=== PATIENT | female | born 1935 | race Caucasian/White ===

== ENCOUNTER 2017-11-15 07:17 | Inpatient (IN) ==
[2017-11-15 08:26] LABS: Basophils # 0.1 10*3/uL (0.0-0.2); Basophils % 0.7 % (0.0-0.8); Eosinophils # 0.5 10*3/uL (0.0-0.87); Eosinophils % 4.9 % (0.00-10.9); Hematocrit 34.4 VOL% (35.7-47.0); Hemoglobin 10.8 GM/DL (12.0-16.0); Immature Granulocytes % 0.4 %; Immature Granulocytes Absolute 0.04 #; Lymphocytes % 10.4 % (21.3-54.2); Mean Corpuscular HGB Conc 31.4 GM/DL (32-36); Mean Corpuscular Hemoglobin 30 PG (27-34); Mean Platelet Volume 10.2 FL (9.6-12.0); Monocytes # 0.5 10*3/uL (0.11-0.8); Monocytes % 5.7 % (1.7-12.7); Neutrophils # 7.1 10*3/uL (1.4-7.4); Neutrophils % 77.9 % (38.7-73.9); Platelet Count 224 T/CUMM (130-400); Red Blood Count 3.66 MC/CUMM (3.8-5.5); Red Cell Distribution Width 14.7 % (9.3-17.3); White Blood Count 9.2 T/CUMM (4-12)
[2017-11-15 08:50] LABS: Albumin 4.1 G/DL (3.4-5.0); Bilirubin,Total 0.7 MG/DL (0.2-1.0); Osmolality,Calculated 283.4 MOS/KG (273-304); Total Protein 7.9 G/DL (6.4-8.3)
[2017-11-15 09:06] LABS: Apearance,Urine CLEAR (Clear); Bacteria,Urine Few /HPF (Few); Bilirubin,Urine Negative (Negative); Blood, Urine Negative (Negative); Glucose,Urine (UA) Negative (Negative); Ketones,Urine Negative (Negative); Mucus,Urine Occasional /LPF (Occasional); Nitrite,Urine Negative (Negative); Protein,Urine 30 MG/DL; RBC,Urine <1 /HPF (0-4); Squamous Epithelial Cell,Urine Occasional /HPF (0-10); Urine Color Yellow (Yellow); Urine Specific Gravity 1.009 (1.001-1.035); Urine Urobilinogen < 2.0 EU/DL (0.2-1.0); WBC,Urine 10 /HPF (0-6)
[2017-11-15] MEDS ORDERED: FUROSEMIDE 80 MG TABLET PO STA (09:29)
[2017-11-15] MEDS ORDERED: LEVOFLOXACIN 500 MG TABLET PO STA (09:29)
[2017-11-15] MEDS ORDERED: GLUCAGON 1 MG VIAL IM PRN (11:32)
[2017-11-15] MEDS ORDERED: ACETAMINOPHEN 325 MG TABLET PO PRN ×2 (11:32→11:37)
[2017-11-15] MEDS ORDERED: DEXTROSE 50% 25 GM/50 ML VIAL IV PRN (11:32)
[2017-11-15] MEDS ORDERED: guaiFENesin/DM ER 600-30 MG TABLET PO PRN (11:32)
[2017-11-15] MEDS ORDERED: MORPHINE 4 MG/1 ML VIAL IV PRN (11:32)
[2017-11-15] MEDS ORDERED: diphenhydrAMINE CAP 25 MG CAPSULE PO PRN (11:32)
[2017-11-15] MEDS ORDERED: ONDANSETRON 4 MG/2 ML VIAL IV PRN (11:32)
[2017-11-15] MEDS ORDERED: DOCUSATE SODIUM 100 MG CAPSULE PO PRN (11:32)
[2017-11-15] MEDS ORDERED: traMADol 50 MG TABLET PO PRN (11:37)
[2017-11-15] MEDS ORDERED: PROMETHAZINE 25 MG TABLET PO PRN (12:00)
[2017-11-15] MEDS: ALBUTEROL/IPRATROPIUM 3 ML NEB RESP TX SCH ×2 (13:24→18:48)
[2017-11-15] MEDS: POTASSIUM CHLORIDE 20 MEQ TABLET PO SCH (14:29)
[2017-11-15] MEDS: FERROUS SULFATE 325 MG TABLET PO SCH ×2 (14:30→20:58)
[2017-11-15] MEDS: ASPIRIN EC 81 MG TABLET PO SCH (14:30)
[2017-11-15] MEDS: SERTRALINE 100 MG TABLET PO SCH (14:30)
[2017-11-15] MEDS: amLODIPine 10 MG TABLET PO SCH (14:30)
[2017-11-15] MEDS: PANTOPRAZOLE 40 MG TABLET PO SCH (14:37)
[2017-11-15] MEDS: FOSINOPRIL 10 MG TABLET PO SCH (16:56)
[2017-11-15] MEDS: GABAPENTIN 600 MG TABLET PO SCH ×2 (16:56→20:58)
[2017-11-15] MEDS: lamoTRIgine 100 MG TABLET PO SCH (16:56)
[2017-11-15] MEDS: FUROSEMIDE 40 MG/4 ML VIAL IV SCH ×2 (16:56→21:38)
[2017-11-15] MEDS: INSULIN LISPRO 100 UNIT/ML SUBCUT SCH (17:22)
[2017-11-15] MEDS: HydrOXYzine PAMOATE 25 MG CAPSULE PO PRN ×2 (17:23→21:38)
[2017-11-15] MEDS: ENOXAPARIN 30 MG/0.3 ML SYRINGE SUBCUT SCH (20:58)
[2017-11-15] MEDS: INSULIN GLARGINE 100 UNIT/ML SUBCUT SCH (21:03)
[2017-11-15] MEDS: SIMVASTATIN 10 MG TABLET PO SCH (21:05)
[2017-11-16] MEDS: ALBUTEROL/IPRATROPIUM 3 ML NEB RESP TX SCH ×4 (00:59→18:52)
[2017-11-16 03:54] LABS: Basophils # 0.1 10*3/uL (0.0-0.2); Basophils % 0.7 % (0.0-0.8); Eosinophils # 0.7 10*3/uL (0.0-0.87); Eosinophils % 8.7 % (0.00-10.9); Hemoglobin 9.5 GM/DL (12.0-16.0); Immature Granulocytes % 0.7 %; Immature Granulocytes Absolute 0.06 #; Lymphocytes # 1.4 10*3/uL (1.4-4.0); Lymphocytes % 16.5 % (21.3-54.2); Mean Corpuscular HGB Conc 31.7 GM/DL (32-36); Mean Corpuscular Hemoglobin 29 PG (27-34); Mean Platelet Volume 10.3 FL (9.6-12.0); Monocytes # 0.7 10*3/uL (0.11-0.8); Monocytes % 8.3 % (1.7-12.7); Neutrophils # 5.4 10*3/uL (1.4-7.4); Neutrophils % 65.1 % (38.7-73.9); Platelet Count 211 T/CUMM (130-400); Red Blood Count 3.26 MC/CUMM (3.8-5.5); Red Cell Distribution Width 14.7 % (9.3-17.3); White Blood Count 8.3 T/CUMM (4-12)
[2017-11-16 04:19] LABS: Calcium 8.7 MG/DL (8.5-10.1)
[2017-11-16 04:20] LABS: Osmolality,Calculated 279.5 MOS/KG (273-304); Potassium 3.7 MMOL/L (3.5-5.1); Risk Ratio 2.14; Thyroid Stimulating Hormone 3.44 uIU/ml (0.358-3.74); VLDL CHOLESTEROL 26.8 MG/DL
[2017-11-16] MEDS: FUROSEMIDE 40 MG/4 ML VIAL IV SCH ×3 (05:06→18:00)
[2017-11-16] MEDS: LEVOTHYROXINE 88 MCG TABLET PO SCH (06:00)
[2017-11-16] MEDS: INSULIN LISPRO 100 UNIT/ML SUBCUT SCH ×2 (08:32→17:28)
[2017-11-16] MEDS: lamoTRIgine 100 MG TABLET PO SCH (09:31)
[2017-11-16] MEDS: SERTRALINE 100 MG TABLET PO SCH (09:31)
[2017-11-16] MEDS: FOSINOPRIL 10 MG TABLET PO SCH (09:31)
[2017-11-16] MEDS: ASPIRIN EC 81 MG TABLET PO SCH (09:31)
[2017-11-16] MEDS: GABAPENTIN 600 MG TABLET PO SCH (09:31)
[2017-11-16] MEDS: FERROUS SULFATE 325 MG TABLET PO SCH ×2 (09:31→20:58)
[2017-11-16] MEDS: amLODIPine 10 MG TABLET PO SCH (09:31)
[2017-11-16] MEDS: PANTOPRAZOLE 40 MG TABLET PO SCH (09:31)
[2017-11-16] MEDS: POTASSIUM CHLORIDE 20 MEQ TABLET PO SCH (09:32)
[2017-11-16] MEDS: HydrOXYzine PAMOATE 25 MG CAPSULE PO PRN (10:13)
[2017-11-16] MEDS ORDERED: LEVOFLOXACIN INJ 250 MG in PREMIX 1 EACH IV SCH (13:00)
[2017-11-16] MEDS: ERTAPENEM 1,000 MG in SODIUM CHLORIDE 0.9% 100 ML IV SCH (13:47)
[2017-11-16] MEDS: GABAPENTIN 300 MG CAPSULE PO SCH ×2 (14:54→20:58)
[2017-11-16] MEDS: CHOLECALCIFEROL 1,000 UNIT TABLET PO SCH (14:54)
[2017-11-16] MEDS: SIMVASTATIN 10 MG TABLET PO SCH (20:58)
[2017-11-16] MEDS: INSULIN GLARGINE 100 UNIT/ML SUBCUT SCH ×2 (20:59→21:06)
[2017-11-16] MEDS: ENOXAPARIN 30 MG/0.3 ML SYRINGE SUBCUT SCH (20:59)
[2017-11-17] MEDS: ALBUTEROL/IPRATROPIUM 3 ML NEB RESP TX SCH ×4 (00:26→20:04)
[2017-11-17 03:51] LABS: Bilirubin,Total 0.6 MG/DL (0.2-1.0); Calcium 8.7 MG/DL (8.5-10.1); Osmolality,Calculated 282.5 MOS/KG (273-304); Total Protein 6.6 G/DL (6.4-8.3)
[2017-11-17] MEDS: LEVOTHYROXINE 88 MCG TABLET PO SCH (05:59)
[2017-11-17] MEDS: INSULIN LISPRO 100 UNIT/ML SUBCUT SCH ×2 (08:15→16:40)
[2017-11-17] MEDS: ASPIRIN EC 81 MG TABLET PO SCH (08:31)
[2017-11-17] MEDS: FOSINOPRIL 10 MG TABLET PO SCH (08:31)
[2017-11-17] MEDS: amLODIPine 10 MG TABLET PO SCH (08:31)
[2017-11-17] MEDS: PANTOPRAZOLE 40 MG TABLET PO SCH (08:31)
[2017-11-17] MEDS: FERROUS SULFATE 325 MG TABLET PO SCH ×2 (08:31→21:59)
[2017-11-17] MEDS: HydrOXYzine PAMOATE 25 MG CAPSULE PO PRN (08:31)
[2017-11-17] MEDS: lamoTRIgine 100 MG TABLET PO SCH (08:31)
[2017-11-17] MEDS: SERTRALINE 100 MG TABLET PO SCH (08:31)
[2017-11-17] MEDS: CHOLECALCIFEROL 1,000 UNIT TABLET PO SCH (08:31)
[2017-11-17] MEDS: POTASSIUM CHLORIDE 20 MEQ TABLET PO SCH (08:31)
[2017-11-17] MEDS: GABAPENTIN 300 MG CAPSULE PO SCH ×3 (08:32→21:59)
[2017-11-17] MEDS: FUROSEMIDE 40 MG/4 ML VIAL IV SCH ×2 (08:39→15:49)
[2017-11-17] MEDS ORDERED: LORazepam 2 MG/1 ML VIAL IV ONE (09:26)
[2017-11-17] MEDS ORDERED: LORazepam 2 MG/1 ML VIAL ONE (09:30)
[2017-11-17] MEDS: ERTAPENEM 1,000 MG in SODIUM CHLORIDE 0.9% 100 ML IV SCH (12:57)
[2017-11-17] MEDS ORDERED: FUROSEMIDE 40 MG/4 ML VIAL IM SCH (16:00)
[2017-11-17] MEDS: CIPROFLOXACIN 500 MG TABLET PO SCH (21:59)
[2017-11-17] MEDS: INSULIN GLARGINE 100 UNIT/ML SUBCUT SCH ×2 (21:59→22:01)
[2017-11-17] MEDS: ENOXAPARIN 30 MG/0.3 ML SYRINGE SUBCUT SCH (21:59)
[2017-11-17] MEDS: SIMVASTATIN 10 MG TABLET PO SCH (21:59)
[2017-11-18] MEDS: ALBUTEROL/IPRATROPIUM 3 ML NEB RESP TX SCH ×3 (01:08→12:44)
[2017-11-18 04:56] LABS: Calcium 8.3 MG/DL (8.5-10.1); Osmolality,Calculated 284.5 MOS/KG (273-304); Potassium 3.9 MMOL/L (3.5-5.1)
[2017-11-18] MEDS: LEVOTHYROXINE 88 MCG TABLET PO SCH (06:21)
[2017-11-18] MEDS ORDERED: TRIAMCINOLONE ACETONIDE 40 MG/1 ML VIAL INTRAARTIC ONE (08:56)
[2017-11-18] MEDS ORDERED: LIDOCAINE 1% 20 ML VIAL IM ONE (08:56)
[2017-11-18] MEDS: CHOLECALCIFEROL 1,000 UNIT TABLET PO SCH (08:59)
[2017-11-18] MEDS: SERTRALINE 100 MG TABLET PO SCH (08:59)
[2017-11-18] MEDS: ASPIRIN EC 81 MG TABLET PO SCH (09:00)
[2017-11-18] MEDS: amLODIPine 10 MG TABLET PO SCH (09:00)
[2017-11-18] MEDS: FERROUS SULFATE 325 MG TABLET PO SCH (09:00)
[2017-11-18] MEDS: PANTOPRAZOLE 40 MG TABLET PO SCH (09:00)
[2017-11-18] MEDS: POTASSIUM CHLORIDE 20 MEQ TABLET PO SCH (09:00)
[2017-11-18] MEDS: CIPROFLOXACIN 500 MG TABLET PO SCH (09:00)
[2017-11-18] MEDS: GABAPENTIN 300 MG CAPSULE PO SCH (09:01)
[2017-11-18] MEDS: lamoTRIgine 100 MG TABLET PO SCH (09:07)
[2017-11-18] MEDS: FUROSEMIDE 40 MG/4 ML VIAL IV SCH (09:07)
[2017-11-18] MEDS ORDERED: FLUMAZENIL 1 MG/10 ML VIAL IV ONE (10:51)
[2017-11-18 11:55] VITALS: BP 122/65
[2017-11-18] MEDS ORDERED: FLUMAZENIL 0.5 MG/5 ML VIAL IV ONE (12:30)
[2017-11-18] MEDS: INSULIN LISPRO 100 UNIT/ML SUBCUT SCH (13:40)
== END 2017-11-18 16:15 | disposition swing bed (61) | DRG 291 ==
LOC: EDUNIT# → EDBD → N.ED 07:17 → N.EDINP 11:32 → N.2W 12:42 → N.TELES 15:07
PROVIDERS: ADMIT Hospitalist; ATTEND Hospitalist

== ENCOUNTER 2018-04-04 10:02 | Inpatient (IN) ==
[2018-04-04 10:50] LABS: Basophils % 0.3 % (0.0-0.8); Eosinophils # 0.1 10*3/uL (0.0-0.87); Eosinophils % 0.6 % (0.00-10.9); Hematocrit 37.5 VOL% (35.7-47.0); Hemoglobin 11.8 GM/DL (12.0-16.0); Immature Granulocytes % 0.6 %; Immature Granulocytes Absolute 0.09 #; Lymphocytes # 0.7 10*3/uL (1.4-4.0); Lymphocytes % 4.7 % (21.3-54.2); Mean Corpuscular HGB Conc 31.5 GM/DL (32-36); Mean Corpuscular Hemoglobin 28 PG (27-34); Mean Corpuscular Volume 89.9 FL (87-102); Mean Platelet Volume 10.7 FL (9.6-12.0); Monocytes # 0.8 10*3/uL (0.11-0.8); Monocytes % 5.2 % (1.7-12.7); Neutrophils # 13.3 10*3/uL (1.4-7.4); Neutrophils % 88.6 % (38.7-73.9); Platelet Count 300 T/CUMM (130-400); Red Blood Count 4.17 MC/CUMM (3.8-5.5); Red Cell Distribution Width 13.4 % (9.3-17.3); White Blood Count 15.1 T/CUMM (4-12)
[2018-04-04 11:18] LABS: Albumin 2.8 G/DL (3.4-5.0); Bilirubin,Total 0.5 MG/DL (0.2-1.0); Calcium 8.9 MG/DL (8.5-10.1); Osmolality,Calculated 276.4 MOS/KG (273-304); Total Protein 7.5 G/DL (6.4-8.3)
[2018-04-04 11:22] LABS: Band Neutrophils 3 % (0-10); Lymphocytes 5 % (20-55); Platelet Estimate Normal; Segmented Neutrophils 89 % (50-85); Total Cells Counted 100
[2018-04-04 11:49] LABS: Apearance,Urine Slightly Hazy (Clear); Bacteria,Urine Many /HPF (Few); Bilirubin,Urine Negative (Negative); Blood, Urine Negative (Negative); Glucose,Urine (UA) Negative (Negative); Hyaline Casts,Urine 1 /LPF (0-3); Ketones,Urine Negative (Negative); Mucus,Urine Occasional /LPF (Occasional); Nitrite,Urine Negative (Negative); Protein,Urine Negative; RBC,Urine 1 /HPF (0-4); Squamous Epithelial Cell,Urine Occasional /HPF (0-10); Urine Color Yellow (Yellow); Urine Specific Gravity 1.011 (1.001-1.035); Urine Urobilinogen < 2.0 EU/DL (0.2-1.0); WBC,Urine 18 /HPF (0-6)
[2018-04-04] MEDS ORDERED: cefTRIAXone 1,000 MG in SODIUM CHLORIDE 0.9% 100 ML IV STA (12:17)
[2018-04-04] MEDS ORDERED: POTASSIUM CHLORIDE 20 MEQ TABLET PO STA (12:35)
[2018-04-04] MEDS ORDERED: SODIUM CHLORIDE 0.9% 100 ML IV ONE (12:42)
[2018-04-04] MEDS ORDERED: cefTRIAXone 1,000 MG VIAL ONE (12:42)
[2018-04-04] MEDS ORDERED: POTASSIUM CHLORIDE 20 MEQ TABLET PO ONE (12:43)
[2018-04-04] MEDS ORDERED: DEXTROSE 50% 25 GM/50 ML VIAL IV PRN (14:07)
[2018-04-04] MEDS ORDERED: ACETAMINOPHEN 325 MG TABLET PO PRN ×2 (14:07→16:01)
[2018-04-04] MEDS ORDERED: guaiFENesin/DM ER 600-30 MG TABLET PO PRN (14:07)
[2018-04-04] MEDS ORDERED: GLUCAGON 1 MG VIAL IM PRN (14:07)
[2018-04-04] MEDS ORDERED: ALBUTEROL 2.5 MG/3 ML NEB RESP TX PRN (16:01)
[2018-04-04] MEDS ORDERED: HydrOXYzine PAMOATE 25 MG CAPSULE PO PRN (16:01)
[2018-04-04] MEDS ORDERED: POTASSIUM CHLORIDE 20 MEQ TABLET PO PRN (16:01)
[2018-04-04] MEDS ORDERED: INFLUENZA VIRUS VACCINE 0.5 ML SYRINGE IM ONE (17:33)
[2018-04-04] MEDS: predniSONE 20 MG TABLET PO SCH (18:23)
[2018-04-04] MEDS: INSULIN REGULAR 100 UNIT/ML SUBCUT SCH ×2 (18:24→21:41)
[2018-04-04] MEDS: glipiZIDE 10 MG TABLET PO SCH (18:24)
[2018-04-04] MEDS: ALBUTEROL/IPRATROPIUM 3 ML NEB RESP TX SCH (19:24)
[2018-04-04] MEDS: DOCUSATE SODIUM 100 MG CAPSULE PO SCH (21:37)
[2018-04-04] MEDS: NYSTATIN/TRIAMCINOLONE CREAM 15 GM TUBE TOP SCH (21:37)
[2018-04-04] MEDS: SIMVASTATIN 10 MG TABLET PO SCH (21:37)
[2018-04-04] MEDS: FERROUS SULFATE 325 MG TABLET PO SCH (21:37)
[2018-04-04] MEDS: INSULIN GLARGINE 100 UNIT/ML SUBCUT SCH (21:37)
[2018-04-05] MEDS: ALBUTEROL/IPRATROPIUM 3 ML NEB RESP TX SCH ×2 (01:38→07:38)
[2018-04-05 04:48] LABS: Basophils % 0.2 % (0.0-0.8); Hematocrit 36.7 VOL% (35.7-47.0); Hemoglobin 11.5 GM/DL (12.0-16.0); Immature Granulocytes % 0.7 %; Immature Granulocytes Absolute 0.07 #; Lymphocytes # 0.9 10*3/uL (1.4-4.0); Lymphocytes % 9.2 % (21.3-54.2); Mean Corpuscular HGB Conc 31.3 GM/DL (32-36); Mean Corpuscular Hemoglobin 28 PG (27-34); Mean Platelet Volume 10.7 FL (9.6-12.0); Monocytes # 0.3 10*3/uL (0.11-0.8); Monocytes % 3.4 % (1.7-12.7); Neutrophils # 8.7 10*3/uL (1.4-7.4); Neutrophils % 86.5 % (38.7-73.9); Platelet Count 274 T/CUMM (130-400); Red Blood Count 4.08 MC/CUMM (3.8-5.5); Red Cell Distribution Width 13.4 % (9.3-17.3); White Blood Count 10.1 T/CUMM (4-12)
[2018-04-05 05:11] LABS: Calcium 8.6 MG/DL (8.5-10.1); Potassium 3.7 MMOL/L (3.5-5.1)
[2018-04-05] MEDS: LEVOTHYROXINE 88 MCG TABLET PO SCH (05:51)
[2018-04-05] MEDS: INSULIN REGULAR 100 UNIT/ML SUBCUT SCH ×4 (10:06→20:37)
[2018-04-05] MEDS: FERROUS SULFATE 325 MG TABLET PO SCH ×2 (10:07→20:37)
[2018-04-05] MEDS: DOCUSATE SODIUM 100 MG CAPSULE PO SCH ×2 (10:07→20:37)
[2018-04-05] MEDS: glipiZIDE 10 MG TABLET PO SCH ×2 (10:07→16:56)
[2018-04-05] MEDS: NYSTATIN/TRIAMCINOLONE CREAM 15 GM TUBE TOP SCH ×2 (10:07→20:38)
[2018-04-05] MEDS: sitaGLIPtin 100 MG TABLET PO SCH (10:08)
[2018-04-05] MEDS: FUROSEMIDE 80 MG TABLET PO SCH ×2 (10:08→16:55)
[2018-04-05] MEDS: METOPROLOL SUCCINATE XL 50 MG TABLET PO SCH (10:09)
[2018-04-05] MEDS: PANTOPRAZOLE 40 MG TABLET PO SCH (10:09)
[2018-04-05] MEDS: predniSONE 20 MG TABLET PO SCH (10:09)
[2018-04-05] MEDS: ASPIRIN EC 81 MG TABLET PO SCH (10:10)
[2018-04-05] MEDS: lamoTRIgine 100 MG TABLET PO SCH (10:10)
[2018-04-05] MEDS: SERTRALINE 100 MG TABLET PO SCH (10:11)
[2018-04-05] MEDS ORDERED: ALBUTEROL/IPRATROPIUM 3 ML NEB RESP TX PRN (10:55)
[2018-04-05] MEDS: cefTRIAXone 1,000 MG in SYRINGE 1 EACH IV SCH (14:22)
[2018-04-05] MEDS: SIMVASTATIN 10 MG TABLET PO SCH (20:37)
[2018-04-05] MEDS: INSULIN GLARGINE 100 UNIT/ML SUBCUT SCH (20:38)
[2018-04-06 04:41] LABS: Basophils % 0.2 % (0.0-0.8); Eosinophils # 0.1 10*3/uL (0.0-0.87); Eosinophils % 0.5 % (0.00-10.9); Hemoglobin 12.1 GM/DL (12.0-16.0); Immature Granulocytes % 0.8 %; Immature Granulocytes Absolute 0.13 #; Lymphocytes # 2.9 10*3/uL (1.4-4.0); Mean Corpuscular Hemoglobin 28 PG (27-34); Mean Corpuscular Volume 91.5 FL (87-102); Mean Platelet Volume 10.4 FL (9.6-12.0); Monocytes # 1.2 10*3/uL (0.11-0.8); Monocytes % 6.9 % (1.7-12.7); Neutrophils # 12.8 10*3/uL (1.4-7.4); Neutrophils % 74.6 % (38.7-73.9); Platelet Count 439 T/CUMM (130-400); Red Blood Count 4.26 MC/CUMM (3.8-5.5); Red Cell Distribution Width 13.6 % (9.3-17.3); White Blood Count 17.2 T/CUMM (4-12)
[2018-04-06 04:51] LABS: Calcium 9.2 MG/DL (8.5-10.1); Osmolality,Calculated 276.7 MOS/KG (273-304); Potassium 3.2 MMOL/L (3.5-5.1)
[2018-04-06] MEDS: LEVOTHYROXINE 88 MCG TABLET PO SCH (06:19)
[2018-04-06] MEDS: POTASSIUM CHLORIDE 20 MEQ TABLET PO PRN ×2 (06:19→21:22)
[2018-04-06] MEDS: INSULIN REGULAR 100 UNIT/ML SUBCUT SCH ×4 (08:41→21:23)
[2018-04-06] MEDS: NYSTATIN/TRIAMCINOLONE CREAM 15 GM TUBE TOP SCH ×2 (10:09→21:25)
[2018-04-06] MEDS: FERROUS SULFATE 325 MG TABLET PO SCH ×2 (10:10→21:22)
[2018-04-06] MEDS: lamoTRIgine 100 MG TABLET PO SCH (10:10)
[2018-04-06] MEDS: ASPIRIN EC 81 MG TABLET PO SCH (10:11)
[2018-04-06] MEDS: SERTRALINE 100 MG TABLET PO SCH (10:11)
[2018-04-06] MEDS: FUROSEMIDE 80 MG TABLET PO SCH ×2 (10:11→16:19)
[2018-04-06] MEDS: predniSONE 20 MG TABLET PO SCH (10:11)
[2018-04-06] MEDS: DOCUSATE SODIUM 100 MG CAPSULE PO SCH ×2 (10:11→21:22)
[2018-04-06] MEDS: METOPROLOL SUCCINATE XL 50 MG TABLET PO SCH (10:11)
[2018-04-06] MEDS: glipiZIDE 10 MG TABLET PO SCH ×2 (10:18→17:35)
[2018-04-06] MEDS: sitaGLIPtin 100 MG TABLET PO SCH (10:18)
[2018-04-06] MEDS: cefTRIAXone 1,000 MG in SYRINGE 1 EACH IV SCH (13:19)
[2018-04-06] MEDS: PANTOPRAZOLE 40 MG TABLET PO SCH (13:19)
[2018-04-06 20:44] LABS: Calcium 8.3 MG/DL (8.5-10.1); Osmolality,Calculated 287.5 MOS/KG (273-304); Potassium 3.9 MMOL/L (3.5-5.1)
[2018-04-06] MEDS: SIMVASTATIN 10 MG TABLET PO SCH (21:22)
[2018-04-06] MEDS: INSULIN GLARGINE 100 UNIT/ML SUBCUT SCH (21:22)
[2018-04-07] MEDS: INSULIN REGULAR 100 UNIT/ML SUBCUT SCH ×6 (02:24→21:24)
[2018-04-07 04:42] LABS: Basophils % 0.2 % (0.0-0.8); Eosinophils # 0.1 10*3/uL (0.0-0.87); Eosinophils % 0.4 % (0.00-10.9); Hemoglobin 11.3 GM/DL (12.0-16.0); Immature Granulocytes % 0.8 %; Immature Granulocytes Absolute 0.11 #; Lymphocytes # 1.4 10*3/uL (1.4-4.0); Lymphocytes % 10.5 % (21.3-54.2); Mean Corpuscular HGB Conc 30.5 GM/DL (32-36); Mean Corpuscular Hemoglobin 28 PG (27-34); Mean Corpuscular Volume 90.9 FL (87-102); Mean Platelet Volume 10.4 FL (9.6-12.0); Monocytes % 7.3 % (1.7-12.7); Neutrophils # 10.6 10*3/uL (1.4-7.4); Neutrophils % 80.8 % (38.7-73.9); Platelet Count 312 T/CUMM (130-400); Red Blood Count 4.07 MC/CUMM (3.8-5.5); Red Cell Distribution Width 13.4 % (9.3-17.3); White Blood Count 13.1 T/CUMM (4-12)
[2018-04-07] MEDS: LEVOTHYROXINE 88 MCG TABLET PO SCH (06:03)
[2018-04-07] MEDS: glipiZIDE 10 MG TABLET PO SCH ×2 (07:23→17:24)
[2018-04-07] MEDS: NYSTATIN/TRIAMCINOLONE CREAM 15 GM TUBE TOP SCH ×2 (07:30→22:40)
[2018-04-07] MEDS ORDERED: INSULIN GLARGINE 100 UNIT/ML SUBCUT SCH (10:25)
[2018-04-07] MEDS: sitaGLIPtin 100 MG TABLET PO SCH (10:54)
[2018-04-07] MEDS: predniSONE 20 MG TABLET PO SCH (11:02)
[2018-04-07] MEDS: DOCUSATE SODIUM 100 MG CAPSULE PO SCH ×2 (11:03→22:40)
[2018-04-07] MEDS: ASPIRIN EC 81 MG TABLET PO SCH (11:03)
[2018-04-07] MEDS: PANTOPRAZOLE 40 MG TABLET PO SCH (11:04)
[2018-04-07] MEDS: FERROUS SULFATE 325 MG TABLET PO SCH ×2 (11:04→22:40)
[2018-04-07] MEDS: SERTRALINE 100 MG TABLET PO SCH (11:05)
[2018-04-07] MEDS: lamoTRIgine 100 MG TABLET PO SCH (11:06)
[2018-04-07] MEDS: METOPROLOL SUCCINATE XL 50 MG TABLET PO SCH (11:06)
[2018-04-07] MEDS: FUROSEMIDE 80 MG TABLET PO SCH ×2 (11:07→17:14)
[2018-04-07] MEDS: cefTRIAXone 1,000 MG in SYRINGE 1 EACH IV SCH (11:09)
[2018-04-07] MEDS ORDERED: TUBERCULIN SKIN TEST 0.1 ML SYRINGE INTRADERM ONE (13:04)
[2018-04-07] MEDS: SIMVASTATIN 10 MG TABLET PO SCH (22:40)
[2018-04-08] MEDS: INSULIN REGULAR 100 UNIT/ML SUBCUT SCH ×6 (00:20→21:40)
[2018-04-08 05:16] LABS: Basophils % 0.2 % (0.0-0.8); Eosinophils # 0.2 10*3/uL (0.0-0.87); Eosinophils % 1.5 % (0.00-10.9); Hematocrit 35.1 VOL% (35.7-47.0); Hemoglobin 10.9 GM/DL (12.0-16.0); Immature Granulocytes Absolute 0.11 #; Lymphocytes # 1.8 10*3/uL (1.4-4.0); Lymphocytes % 16.8 % (21.3-54.2); Mean Corpuscular HGB Conc 31.1 GM/DL (32-36); Mean Corpuscular Hemoglobin 29 PG (27-34); Mean Corpuscular Volume 91.6 FL (87-102); Mean Platelet Volume 10.3 FL (9.6-12.0); Monocytes # 0.7 10*3/uL (0.11-0.8); Monocytes % 6.9 % (1.7-12.7); Neutrophils # 7.8 10*3/uL (1.4-7.4); Neutrophils % 73.6 % (38.7-73.9); Platelet Count 285 T/CUMM (130-400); Red Blood Count 3.83 MC/CUMM (3.8-5.5); Red Cell Distribution Width 13.4 % (9.3-17.3); White Blood Count 10.6 T/CUMM (4-12)
[2018-04-08 05:37] LABS: Calcium 8.5 MG/DL (8.5-10.1); Potassium 3.6 MMOL/L (3.5-5.1)
[2018-04-08] MEDS: LEVOTHYROXINE 88 MCG TABLET PO SCH (06:45)
[2018-04-08] MEDS: sitaGLIPtin 100 MG TABLET PO SCH (08:30)
[2018-04-08] MEDS: NYSTATIN/TRIAMCINOLONE CREAM 15 GM TUBE TOP SCH ×2 (08:30→21:42)
[2018-04-08] MEDS: FUROSEMIDE 80 MG TABLET PO SCH ×2 (08:30→16:48)
[2018-04-08] MEDS: ASPIRIN EC 81 MG TABLET PO SCH (11:25)
[2018-04-08] MEDS: FERROUS SULFATE 325 MG TABLET PO SCH ×2 (11:25→21:40)
[2018-04-08] MEDS: lamoTRIgine 100 MG TABLET PO SCH (11:25)
[2018-04-08] MEDS: cefTRIAXone 1,000 MG in SYRINGE 1 EACH IV SCH (11:25)
[2018-04-08] MEDS: PANTOPRAZOLE 40 MG TABLET PO SCH (11:25)
[2018-04-08] MEDS: SERTRALINE 100 MG TABLET PO SCH (11:25)
[2018-04-08] MEDS: DOCUSATE SODIUM 100 MG CAPSULE PO SCH ×2 (11:25→21:40)
[2018-04-08] MEDS: predniSONE 20 MG TABLET PO SCH (11:25)
[2018-04-08] MEDS: glipiZIDE 10 MG TABLET PO SCH ×2 (13:44→17:59)
[2018-04-08] MEDS: METOPROLOL SUCCINATE XL 50 MG TABLET PO SCH (13:45)
[2018-04-08] MEDS: SIMVASTATIN 10 MG TABLET PO SCH (21:40)
[2018-04-08] MEDS: INSULIN GLARGINE 100 UNIT/ML SUBCUT SCH (21:40)
[2018-04-09] MEDS: INSULIN REGULAR 100 UNIT/ML SUBCUT SCH ×6 (00:30→21:44)
[2018-04-09] MEDS: LEVOTHYROXINE 88 MCG TABLET PO SCH (05:51)
[2018-04-09] MEDS: glipiZIDE 10 MG TABLET PO SCH ×2 (09:21→16:26)
[2018-04-09] MEDS: METOPROLOL SUCCINATE XL 50 MG TABLET PO SCH (09:21)
[2018-04-09] MEDS: SERTRALINE 100 MG TABLET PO SCH (09:22)
[2018-04-09] MEDS: lamoTRIgine 100 MG TABLET PO SCH (09:22)
[2018-04-09] MEDS: predniSONE 20 MG TABLET PO SCH (09:22)
[2018-04-09] MEDS: FERROUS SULFATE 325 MG TABLET PO SCH ×2 (09:22→21:43)
[2018-04-09] MEDS: sitaGLIPtin 100 MG TABLET PO SCH (09:22)
[2018-04-09] MEDS: FUROSEMIDE 80 MG TABLET PO SCH ×2 (09:23→16:00)
[2018-04-09] MEDS: ASPIRIN EC 81 MG TABLET PO SCH (09:23)
[2018-04-09] MEDS: NYSTATIN/TRIAMCINOLONE CREAM 15 GM TUBE TOP SCH ×2 (09:24→21:45)
[2018-04-09] MEDS: amLODIPine 5 MG TABLET PO SCH (09:24)
[2018-04-09] MEDS: PANTOPRAZOLE 40 MG TABLET PO SCH (09:41)
[2018-04-09] MEDS: DOCUSATE SODIUM 100 MG CAPSULE PO SCH ×2 (09:41→21:43)
[2018-04-09 10:03] LABS: Calcium 8.9 MG/DL (8.5-10.1); Osmolality,Calculated 283.8 MOS/KG (273-304); Potassium 3.9 MMOL/L (3.5-5.1)
[2018-04-09] MEDS: BENZONATATE 100 MG CAPSULE PO PRN (16:26)
[2018-04-09] MEDS: SIMVASTATIN 10 MG TABLET PO SCH (21:43)
[2018-04-09] MEDS: INSULIN GLARGINE 100 UNIT/ML SUBCUT SCH (21:43)
[2018-04-10] MEDS: INSULIN REGULAR 100 UNIT/ML SUBCUT SCH ×4 (01:05→12:29)
[2018-04-10] MEDS: LEVOTHYROXINE 88 MCG TABLET PO SCH (06:27)
[2018-04-10] MEDS: amLODIPine 5 MG TABLET PO SCH (08:45)
[2018-04-10] MEDS: lamoTRIgine 100 MG TABLET PO SCH (08:45)
[2018-04-10] MEDS: glipiZIDE 10 MG TABLET PO SCH (08:45)
[2018-04-10] MEDS: BENZONATATE 100 MG CAPSULE PO PRN (08:45)
[2018-04-10] MEDS: FUROSEMIDE 80 MG TABLET PO SCH (08:46)
[2018-04-10] MEDS: SERTRALINE 100 MG TABLET PO SCH (08:46)
[2018-04-10] MEDS: sitaGLIPtin 100 MG TABLET PO SCH (08:46)
[2018-04-10] MEDS: ASPIRIN EC 81 MG TABLET PO SCH (08:46)
[2018-04-10] MEDS: FERROUS SULFATE 325 MG TABLET PO SCH (08:46)
[2018-04-10] MEDS: METOPROLOL SUCCINATE XL 50 MG TABLET PO SCH (08:46)
[2018-04-10] MEDS: predniSONE 20 MG TABLET PO SCH (08:46)
[2018-04-10] MEDS: DOCUSATE SODIUM 100 MG CAPSULE PO SCH (08:46)
[2018-04-10] MEDS: PANTOPRAZOLE 40 MG TABLET PO SCH (08:46)
[2018-04-10] MEDS: NYSTATIN/TRIAMCINOLONE CREAM 15 GM TUBE TOP SCH (09:36)
[2018-04-10 12:18] VITALS: BP 164/68
[2018-04-10] MEDS ORDERED: INSULIN GLARGINE 100 UNIT/ML SUBCUT SCH (21:00)
== END 2018-04-10 14:40 | disposition swing bed (61) | DRG 690 ==
LOC: EDUNIT# → EDBD → N.EDINP 10:02 → N.ED 10:02 → N.EDINP 17:02 → N.3E 17:04 → SUATTDRO 04-05 11:22
PROVIDERS: ADMIT Internal Medicine; ATTEND Emergency Medicine